=== PATIENT | male | born 2000 | race Caucasian/White ===

== ENCOUNTER 2024-05-14 02:36 | Emergency (ER) | payer OTHER ==
[2024-05-14 02:46] VITALS: BP 116/71; PULSE 62; RESP 16; TEMP 98.1; BMI 28.3
[2024-05-14 04:44] LABS: BASO % 0.7 % (0-2.0); HEMATOCRIT 49.3 % (35.4-49); HEMOGLOBIN 16.8 GM/dL (11.7-16.9); LYMPH % 25.8 % (8-40); MCH 28.9 pg (25.7-33.7); MCHC 34.1 g/dl (32.0-35.9); MEAN CELL VOLUME 84.8 fl (80-96); MEAN PLT VOLUME 9.9 fl (7.5-11.1); MONO % 10.6 % (3.8-10.2); NEUT % 61.9 % (42.8-82.8); PLATELET COUNT 195 10^3/uL (134-434); RBC 5.82 M/mm3 (4.00-5.60); RDW 12.5 % (11.9-15.9); WHITE BLOOD COUNT 7.6 K/mm3 (4.0-10.0)
[2024-05-14 05:01] LABS: INR 1.03 (0.83-1.09); PROTHROMBIN TIME (PATIENT) 11.8 SEC (9.7-13.0)
[2024-05-14 05:02] LABS: POTASSIUM 4.5 mmol/L (3.5-5.1)
[2024-05-14 05:04] LABS: ALBUMIN 4.1 g/dl (3.4-5.0); BLOOD UREA NITROGEN 16.1 mg/dL (7-18); CALCIUM 9.8 mg/dL (8.5-10.1)
[2024-05-14 05:07] LABS: CREATININE 0.9 mg/dL (0.55-1.3)
[2024-05-14 05:09] LABS: BILIRUBIN,TOTAL 0.5 mg/dL (0.2-1)
== END 2024-05-14 05:11 | disposition home or self-care (01) ==
LOC: JER 02:36
DX: R07.2 Precordial pain (principal)
CPT/HCPCS: 36415; 71046-TC-FY; 80053; 85025; 85379; 85610; 85730; 93005; 93010; 99285-25